=== PATIENT | female | born 1965 | race Caucasian/White ===

== ENCOUNTER 2016-11-12 12:17 | Emergency (ER) | payer MEDICARE, OTHER ==
--- NOTE | 2016-11-12 13:44 | ED ---
Extremity Problem HPI - General Chief complaint: Extremity Problem,Nontraumatic Stated complaint: Legs Swelling Time Seen by Provider: 11/12/16 13:30 Source: patient, RN notes reviewed Mode of arrival: wheelchair Limitations: no limitations - History of Present Illness Initial comments: This is a 42-year-old female with a history of DVTs about 10 years ago presents with complaints of about 4 days of increasing swelling to both lower extremities with pain she states it yet worse since last night. She denies any shortness breath fevers chills or sweats the pain is 10/10 severity burning in nature. She suspects it feels similar to her previous episode. She has no other complaints at this time. MD Complaint: extremity pain, extremity swelling - Related Data Home Medications Medication Instructions Recorded Confirmed Albuterol Sulfate [Ventolin HFA] 2 puff INHALATION RT-TID 03/19/14 11/12/16 Fluticasone Propionate [Flonase] 2 spray EA NOSTRIL DAILY 03/19/14 11/12/16 Ibuprofen [Motrin] 800 mg PO TID 03/19/14 11/12/16 Methocarbamol [Robaxin-750] 750 mg PO HS 03/19/14 11/12/16 Simvastatin [Zocor] 20 mg PO HS 03/19/14 11/12/16 Tiotropium 18 Mcg/Puff [Spiriva] 1 cap INHALATION RT-DAILY 03/19/14 11/12/16 Budesonide/Formoterol Fumarate 2 puff INHALATION RT-BID 11/12/16 11/12/16 [Symbicort 80-4.5 Mcg Inhaler] Lactulose [Cephulac] 20 gm PO BID 11/12/16 11/12/16 Loratadine [Claritin] 10 mg PO DAILY 11/12/16 11/12/16 Mometasone/Formoterol [Dulera 100 2 puff INHALATION RT-BID 11/12/16 11/12/16 Mcg/5 Mcg Inhaler] Montelukast [Singulair] 10 mg PO HS 11/12/16 11/12/16 Spironolactone [Aldactone] 25 mg PO DAILY 11/12/16 11/12/16 Allergies Allergy/AdvReac Type Severity Reaction Status Date / Time amoxicillin [Amoxicillin] AdvReac Unknown FLUSHED, Verified 11/12/16 13:20 RED & HOT Review of Systems ROS Statement: Those systems with pertinent positive or pertinent negative responses have been documented in the HPI. ROS Other: All systems not noted in ROS Statement are negative. Past Medical History Past Medical History: Asthma, COPD, Deep Vein Thrombosis (DVT), Osteoarthritis ( OA) Additional Past Medical History / Comment(s): FREQUENT BRONCHITIS, OCCASIONAL SWELLING IN LEGS, NEUOPATHY IN LEGS, SCIATICA History of Any Multi-Drug Resistant Organisms: None Reported Past Surgical History: Back Surgery, Orthopedic Surgery Additional Past Surgical History / Comment(s): PAIN CLINIC PROCEDURES, ARTHROSCOPY SALINA KNEES, CERVICAL FUSION WITH PLATES IN NECK Past Anesthesia/Blood Transfusion Reactions: No Reported Reaction Past Psychological History: PTSD Smoking Status: Heavy tobacco smoker Past Alcohol Use History: Occasional Past Drug Use History: None Reported General Exam - General Exam Comments Initial Comments: This is a well-developed well-nourished awake alert oriented history female Limitations: no limitations General appearance: alert, in no apparent distress Head exam: Present: atraumatic, normocephalic, normal inspection Eye exam: Present: normal appearance, PERRL, EOMI. Absent: scleral icterus, conjunctival injection, periorbital swelling ENT exam: Present: normal exam, mucous membranes moist Neck exam: Present: normal inspection. Absent: tenderness, meningismus, lymphadenopathy Respiratory exam: Present: normal lung sounds bilaterally. Absent: respiratory distress, wheezes, rales, rhonchi, stridor Cardiovascular Exam: Present: regular rate, normal rhythm, normal heart sounds. Absent: systolic murmur, diastolic murmur, rubs, gallop, clicks GI/Abdominal exam: Present: soft, normal bowel sounds. Absent: distended, tenderness, guarding, rebound, rigid Extremities exam: Present: full ROM, tenderness, normal capillary refill, pedal edema, calf tenderness. Absent: joint swelling Back exam: Present: normal inspection Neurological exam: Present: alert, oriented X3, CN II-XII intact Psychiatric exam: Present: normal affect, normal mood Skin exam: Present: warm, dry, intact, normal color. Absent: rash Course Vital Signs 11/12/16 12:23 Temperature 97.8 F Pulse Rate 104 H Respiratory 18 Rate Blood Pressure 137/71 O2 Sat by Pulse 96 Oximetry Medical Decision Making - Medical Decision Making I did discuss the findings with the patient she will be discharged she is already on Aldactone she states I did recommend elevating her legs is a couple times a day for 15-20 minutes she will try this first and a follow-up with her doctor. - Lab Data Result diagrams: 11/12/16 14:15 11/12/16 14:15 Lab Results 11/12/16 11/12/16 11/12/16 Range/Units 14:15 14:15 14:15 WBC 9.2 (3.8-10.6) k/uL RBC 4.57 (3.80-5.40) m/uL Hgb 14.6 (11.4-16.0) gm/dL Hct 42.9 (34.0-46.0) % MCV 93.9 (80.0-100.0) fL MCH 31.9 (25.0-35.0) pg MCHC 34.0 (31.0-37.0) g/dL RDW 13.3 (11.5-15.5) % Plt Count 294 (150-450) k/uL Neutrophils % 63 % Lymphocytes % 26 % Monocytes % 6 % Eosinophils % 3 % Basophils % 1 % Neutrophils # 5.8 (1.3-7.7) k/uL Lymphocytes # 2.4 (1.0-4.8) k/uL Monocytes # 0.5 (0-1.0) k/uL Eosinophils # 0.2 (0-0.7) k/uL Basophils # 0.1 (0-0.2) k/uL D-Dimer (<0.60) mg/L FEU Sodium (137-145) mmol/L Potassium (3.5-5.1) mmol/L Chloride (98-107) mmol/L Carbon Dioxide (22-30) mmol/L Anion Gap mmol/L BUN (7-17) mg/dL Creatinine (0.52-1.04) mg/dL Est GFR (MDRD) Af Amer (>60 ml/min/1.73 sqM) Est GFR (MDRD) Non-Af (>60 ml/min/1.73 sqM) Glucose (74-99) mg/dL Calcium (8.4-10.2) mg/dL Total Bilirubin (0.2-1.3) mg/dL AST (14-36) U/L ALT (9-52) U/L Alkaline Phosphatase (38-126) U/L Total Creatine Kinase 99 (30-135) U/L CK-MB (CK-2) 0.5 (0.0-2.4) ng/mL CK-MB (CK-2) Rel Index 0.5 NT-Pro-B Natriuret Pep 88 pg/mL Total Protein (6.3-8.2) g/dL Albumin (3.5-5.0) g/dL 11/12/16 11/12/16 Range/Units 14:15 14:15 WBC (3.8-10.6) k/uL RBC (3.80-5.40) m/uL Hgb (11.4-16.0) gm/dL Hct (34.0-46.0) % MCV (80.0-100.0) fL MCH (25.0-35.0) pg MCHC (31.0-37.0) g/dL RDW (11.5-15.5) % Plt Count (150-450) k/uL Neutrophils % % Lymphocytes % % Monocytes % % Eosinophils % % Basophils % % Neutrophils # (1.3-7.7) k/uL Lymphocytes # (1.0-4.8) k/uL Monocytes # (0-1.0) k/uL Eosinophils # (0-0.7) k/uL Basophils # (0-0.2) k/uL D-Dimer 0.48 (<0.60) mg/L FEU Sodium 137 (137-145) mmol/L Potassium 3.8 (3.5-5.1) mmol/L Chloride 101 (98-107) mmol/L Carbon Dioxide 25 (22-30) mmol/L Anion Gap 11 mmol/L BUN 9 (7-17) mg/dL Creatinine 0.89 (0.52-1.04) mg/dL Est GFR (MDRD) Af Amer >60 (>60 ml/min/1.73 sqM) Est GFR (MDRD) Non-Af >60 (>60 ml/min/1.73 sqM) Glucose 119 H (74-99) mg/dL Calcium 9.8 (8.4-10.2) mg/dL Total Bilirubin 0.8 (0.2-1.3) mg/dL AST 23 (14-36) U/L ALT 34 (9-52) U/L Alkaline Phosphatase 92 (38-126) U/L Total Creatine Kinase (30-135) U/L CK-MB (CK-2) (0.0-2.4) ng/mL CK-MB (CK-2) Rel Index NT-Pro-B Natriuret Pep pg/mL Total Protein 7.0 (6.3-8.2) g/dL Albumin 4.2 (3.5-5.0) g/dL - EKG Data -: EKG Interpreted by Tn EKG shows normal: sinus rhythm (EKG shows a normal sinus rhythm of 80 ND interval 128 QRS duration 80 daily since QTC of 400/461 some possible left atrial enlargement no acute ST-T wave changes some artifact present) - Radiology Data Radiology results: report reviewed (I did review the imaging studies and report no acute findings.), image reviewed Disposition Clinical Impression: Peripheral edema Disposition: HOME SELF-CARE Condition: Good Instructions: Leg Edema (ED) Additional Instructions: Elevate your legs for 15-20 minutes at least twice a day.
[2016-11-12 14:37] LABS: Basophils # (A) 0.1 k/uL (0-0.2); Basophils % (A) 1 %; CH 31.5; CHCM 33.6; Eosinophils # (A) 0.2 k/uL (0-0.7); Eosinophils % (A) 3 %; HCT 42.9 % (34.0-46.0); HDW 2.44; HGB 14.6 gm/dL (11.4-16.0); Luc # (Auto) 0.15; Luc % (Auto) 2; Lymphocytes # (A) 2.4 k/uL (1.0-4.8); Lymphocytes % (A) 26 %; MCH 31.9 pg (25.0-35.0); MCV 93.9 fL (80.0-100.0); Mean Platelet Volume 7.1; Monocytes # (A) 0.5 k/uL (0-1.0); Monocytes % (A) 6 %; Neutrophils # (A) 5.8 k/uL (1.3-7.7); Neutrophils % (A) 63 %; RBC 4.57 m/uL (3.80-5.40); RDW 13.3 % (11.5-15.5); WBC 9.2 k/uL (3.8-10.6); WBC (Perox) 9.04
[2016-11-12 14:44] LABS: ALT 34 U/L (9-52); AST 23 U/L (14-36); Alkaline Phosphatase 92 U/L (38-126); Anion Gap 11 mmol/L; Blood Urea Nitrogen 9 mg/dL (7-17); Calcium 9.8 mg/dL (8.4-10.2); Carbon Dioxide 25 mmol/L (22-30); Chloride 101 mmol/L (98-107); Glucose 119 mg/dL (74-99); Non-African American GFR(MDRD) >60 (>60 ml/min/1.73 sqM); Potassium 3.8 mmol/L (3.5-5.1); Sodium 137 mmol/L (137-145); Total Bilirubin 0.8 mg/dL (0.2-1.3)
[2016-11-12 15:01] LABS: Creatine Kinase MB 0.5 ng/mL (0.0-2.4)
--- NOTE | 2016-11-12 15:05 | US ---
EXAMINATION TYPE: US venous doppler duplex LE DATE OF EXAM: 11/12/2016 1:40 PM COMPARISON: NONE CLINICAL HISTORY: Pain. SIDE PERFORMED: Bilateral lower extremity TECHNIQUE: The lower extremity deep venous system is examined utilizing real time linear array sonog diandra with graded compression, doppler sonography and color-flow sonography. VESSELS IMAGED: External Iliac Vein (EIV) Common Femoral Vein Deep Femoral Vein Greater Saphenous Vein * Femoral Vein Popliteal Vein Small Saphenous Vein * Proximal Calf Veins (* superficial vessels) Patient of large body habitus. Right Leg: Negative for DVT Left Leg: Negative for DVT IMPRESSION: 1. No diagnostic evidence of DVT as visualized.
[2016-11-12 15:25] VITALS: BP 153/84; PULSE 72; RESP 16; TEMP 98.3
== END 2016-11-12 15:32 | disposition home or self-care (01) ==
LOC: EC 12:17
DX: R60.9 Edema, unspecified (principal); J44.9 Chronic obstructive pulmonary disease, unspecified; M19.90 Unspecified osteoarthritis, unspecified site; F17.200 Nicotine dependence, unspecified, uncomplicated; Z86.718 Personal history of other venous thrombosis and embolism; Z79.1 Long term (current) use of non-steroidal anti-inflammatories (NSAID); Z79.51 Long term (current) use of inhaled steroids; Z79.899 Other long term (current) drug therapy; Z88.0 Allergy status to penicillin
CPT/HCPCS: 36415; 80053; 82550; 82553; 83880; 85025; 85379; 86001; 93005; 93970; 99284

== ENCOUNTER → 2016-11-12 | Outpatient (CLI) | payer MEDICARE, OTHER ==
[2016-11-15 13:43] LABS: Beef IgG 9.7 mcg/mL (< 2.0); Chicken Meat IgG < 2.0 mcg/mL (< 2.0); Coffee IgG < 2.0 mcg/mL (< 2.0); Corn IgG 23.9 mcg/mL (< 2.0); Cow's Milk IgG 74.1 mcg/mL (< 2.0); Peanut IgG < 2.0 mcg/mL (< 2.0); Pork IgG 2.3 mcg/mL (< 2.0); Potato IgG < 2.0 mcg/mL (< 2.0); Soybean IgG < 2.0 mcg/mL (< 2.0); Tomato IgG < 2.0 mcg/mL (< 2.0); Wheat IgG 2.4 mcg/mL (< 2.0)
== END | disposition home or self-care (01) ==
LOC: LABWHC1 08:19
PROVIDERS: ATTEND Otolaryngology
DX: J30.89 Other allergic rhinitis (principal)
CPT/HCPCS: 36415; 86001

== ENCOUNTER → 2017-01-25 | Outpatient (CLI) | payer MEDICARE, OTHER ==
--- NOTE | 2017-01-25 15:36 | US ---
EXAMINATION TYPE: US bladder DATE OF EXAM: 01/25/2017 COMPARISON: NONE CLINICAL HISTORY: R32 Unspecified urinary incontinence. pt states newly diagnosed with food allergies , bloating and bowel issues EXAM MEASUREMENTS: Bilateral wall thickening identified or nodule seen. Post Void Residual Volume: 2.9 mL Bladder scanned, pre and post void imaging, normal appearing exam. Color Doppler performed to assess ureteral jets. Bilateral Jets seen: yes Normal Post Void Residual (less than 50ml): yes IMPRESSION: Normal study.
== END | disposition home or self-care (01) ==
LOC: RADUSWWP 14:28
PROVIDERS: ATTEND Family Medicine
DX: R32 Unspecified urinary incontinence (principal)
CPT/HCPCS: 76857

== ENCOUNTER → 2018-03-23 | Outpatient (CLI) | payer MEDICARE, OTHER ==
--- NOTE | 2018-03-31 11:38 | MM ---
Reason for exam: additional evaluation requested from prior study. Last mammogram was performed 2 years and 4 months ago. History: Taking hormonal contraceptives beginning at age 19. Physical Findings: Nurse did not find any significant physical abnormalities on exam. MG 3D Diag Mammo W/Cad SALINA Bilateral CC and MLO view(s) were taken. Prior study comparison: November 18, 2015, mammogram, performed at [facility]. The breast tissue is heterogeneously dense. This may lower the sensitivity of mammography. Stable benign calcifications. There is no discrete abnormality. No significant new findings when compared with previous films. These results were verbally communicated with the patient on 03/31/18. ASSESSMENT: Benign, BI-RAD 2 RECOMMENDATION: Routine screening mammogram of both breasts in 1 year.
== END | disposition home or self-care (01) ==
LOC: RADMAMWWP 14:19
PROVIDERS: ATTEND Family Medicine
DX: N60.11 Diffuse cystic mastopathy of right breast (principal); N60.12 Diffuse cystic mastopathy of left breast
CPT/HCPCS: 77066; G0279; 77062

== ENCOUNTER → 2018-04-20 | Outpatient (CLI) | payer MEDICARE, OTHER | LOC: LABWHC1 11:47 | PROVIDERS: ATTEND Psychiatry & Neurology Neurology | DX: M62.838 Other muscle spasm (principal) | CPT/HCPCS: 36415; 82607 ==

== ENCOUNTER 2018-05-13 08:00 | Day surgery (SDC) | payer MEDICARE, OTHER ==
[~2018-05-13 08:00] MED LIST: PREMYELOGRAM MEDICATION REVIEW 1 EACH MISC PO ONE
[2018-05-13 08:44] VITALS: TEMP 98.1
[2018-05-13] MEDS ORDERED: DIAZEPAM 5 MG TAB PO STA (08:46)
[2018-05-13 09:43] VITALS: PULSE 68
[2018-05-13] MEDS ORDERED: HYDROcodone/APAP 5-325MG 1 EACH TAB PO PRN (09:50)
--- NOTE | 2018-05-13 11:37 | FL ---
EXAMINATION TYPE: FL myelogram 2 or more regions DATE OF EXAM: 05/13/2018 COMPARISON: Outside lumbar spine MRI April 13, 2018 HISTORY: Cervicalgia and sacroiliitis, back pain. Informed consent was obtained and all the patient's questions were answered. The L4 level was locali zed under fluoroscopy. Standard sterile technique was utilized as well as appropriate local anesthes ia 1% Lidocaine. Spinal needle was introduced into the thecal sac under fluoroscopic guidance and 15 mL's of Isovue 200 was injected. The patient tolerated the procedure well and left the department i n stable condition. CT myelography is to follow. Images obtained to document successful spinal anila l injection. Note is made of fusion plate in the mid to lower cervical spine. Patient was kept in hospital for short stay after procedure and discharged home in stable condition. Vital signs were monitored before during and after procedure. A total of 2 minutes 7 seconds of fluoroscopic time was utilized. 4 spot images are saved to PACS. IMPRESSION: Successful myelography for subsequent CT cervical and lumbar spine.
--- NOTE | 2018-05-13 11:54 | CT ---
EXAMINATION TYPE: CT cervical spine w con DATE OF EXAM: 05/13/2018 COMPARISON: Outside MRI cervical spine images April 13, 2018 HISTORY: Cervicalgia per order. CT DLP: 1669 mGycm. Automated Exposure Control for Dose Reduction was Utilized. TECHNIQUE: CT scan of the cervical spine is obtained with intrathecal contrast, axial images are obt ained, sagittal and coronal reformatted images are also reviewed. Imaging is performed after the intr athecal injection of 15 cc of Isovue-200. FINDINGS: Cervical spine is visualized in its entirety from C1 through upper thoracic levels, redemon strates satisfactory alignment without evidence of acute fracture or dislocation. Successful contrast opacification of spinal canal is noted. Prevertebral soft tissue appears within normal limits. The C1-C2 articulation is within normal limits on the coronal images. There is redemonstration of anteri or fusion plate and artificial disc material C4-C6 levels. Vertebral body heights and disc space heig hts are felt satisfactory above and below surgical levels. Small posterior disc herniation mildly eff aces anterior thecal sac C6-C7 level on sagittal image 36. Review of axial images shows the C2-C3 and C3-C4 levels to appear within normal limits. Axial images at C4-C5 and C5-C6 levels show artifact from anterior fusion plate and disc material, sp inal canal is preserved, bilateral neural foramina are patent. Axial images at C6-C7 level shows small central disc protrusion mildly effacing anterior thecal sac n ear axial image 72, bilateral neural foramina are patent. Axial images at C7-T1 level are felt within normal limits. Mild emphysematous change in visualized lung apices is felt present. IMPRESSION: Postsurgical changes C4-C6 level with satisfactory alignment. Small disc herniation C6-C7 level otherwise fairly unremarkable study.
--- NOTE | 2018-05-13 12:21 | CT ---
EXAMINATION TYPE: CT lumbar spine w con DATE OF EXAM: 05/13/2018 COMPARISON: Outside MRI lumbar spine coronal and sagittal images April 13, 2018. HISTORY: Sacroiliitis, lumbago with sciatica unspecified side, and pain in the thoracic spine all per order. CT DLP: 1669 mGycm Automated exposure control for dose reduction was used. CONTRAST: CT scan of the lumbar is performed with intrathecal contrast, patient injected with 15 mL of Isovue M 200. Findings: There are 5 lumbar type vertebra identified. There is satisfactory alignment without eviden ce of acute fracture or dislocation. Vertebral body heights are maintained. There is mild disc space narrowing with mild anterior spurring L2-L3 level. There is mild to moderate anterior spurring L3-L4 level. Small posterior disc herniations are redemonstrated at L2-L3 through L4-L5 levels on sagittal images. Successful contrast opacification of spinal canal is noted. Conus medullaris is normal in pos ition and appearance attending mid L1 level. Review of axial images shows the T12-L1 and L1-L2 levels to appear within normal limits. Axial images at the L2-L3 level show mild broad disc bulge mildly effacing anterior thecal sac, bilat eral neural foramina are patent. Axial images at the L3-L4 level show mild broad disc bulge mildly effacing anterior thecal sac, bilat eral neural foramina are patent. No significant change from prior. Axial images at L4-L5 level show mild facet degenerative changes bilaterally. There is mild broad dis c bulge mildly effacing anterior thecal sac. Bilateral neural foramina are patent. Axial images at the L5-S1 level show mild right greater than left facet degenerative changes. Spinal canal is preserved. Bilateral neural foramina are patent. Normal-appearing appendix from cecum is incidentally seen. Mild wall thickening of the right and visu alized transverse colon is presumed product of poor distention. IMPRESSION: Multilevel degenerative changes in the mid to lower lumbar spine as detailed above, findi ngs correlate with outside MRI.
[2018-05-13 13:19] VITALS: RESP 20
[2018-05-13 14:02] VITALS: BP 119/70
== END 2018-05-13 13:30 | disposition home or self-care (01) ==
LOC: RADPROMAIN 08:00
PROVIDERS: ATTEND Specialist
DX: M51.16 Intervertebral disc disorders with radiculopathy, lumbar region (principal); M50.223 Other cervical disc displacement at C6-C7 level; Z98.1 Arthrodesis status; M46.1 Sacroiliitis, not elsewhere classified
CPT/HCPCS: 62305; 72126; 72132; Q9966

== ENCOUNTER → 2018-12-20 | Outpatient (CLI) | payer MEDICARE ==
[2018-12-20 10:53] LABS: Basophils % (A) 1 %; Eosinophils # (A) 0.1 k/uL (0-0.7); Eosinophils % (A) 2 %; HCT 50.1 % (34.0-46.0); HGB 16.4 gm/dL (11.4-16.0); Lymphocytes # (A) 2.3 k/uL (1.0-4.8); Lymphocytes % (A) 27 %; MCH 31.6 pg (25.0-35.0); MCHC 32.7 g/dL (31.0-37.0); MCV 96.8 fL (80.0-100.0); Mean Platelet Volume 7.6; Monocytes # (A) 0.6 k/uL (0-1.0); Monocytes % (A) 7 %; Neutrophils # (A) 5.1 k/uL (1.3-7.7); Neutrophils % (A) 62 %; Platelet Count 327 k/uL (150-450); RBC 5.18 m/uL (3.80-5.40); WBC 8.2 k/uL (3.8-10.6)
[2018-12-20 16:21] LABS: Albumin 4.6 g/dL (3.80-4.90); Albumin/Globulin Ratio 2.42 (1.60-3.17); Anion Gap 10.4 mmol/L (4.00-12.00); Calcium 9.6 mg/dL (8.7-10.3); Carbon Dioxide 22.6 mmol/L (21.6-31.8); Globulin 1.9 g/dL (1.6-3.3); LDL Cholesterol,Calculated 177.8 mg/dL (0.0-131.0); Potassium 4.4 mmol/L (3.5-5.5); Total Bilirubin 0.9 mg/dL (0.3-1.2); Total Protein 6.5 g/dL (6.2-8.2); VLDL Calculation 20.2 mg/dL (5.00-40.00)
[2018-12-20 20:48] LABS: Hemoglobin A1C 5.4 % (4.0-6.0)
== END | disposition home or self-care (01) ==
LOC: LABWHC1 10:02
PROVIDERS: ATTEND Otolaryngology
DX: J30.89 Other allergic rhinitis (principal); N93.0 Postcoital and contact bleeding; R53.83 Other fatigue; E78.00 Pure hypercholesterolemia, unspecified; Z13.220 Encounter for screening for lipoid disorders
CPT/HCPCS: 36415; 80053; 80061; 83036; 84443; 85025; 86001

== ENCOUNTER → 2019-09-13 | Outpatient (CLI) | payer MEDICARE ==
[2019-09-13 07:40] LABS: Basophils % (A) 0 %; Eosinophils # (A) 0.2 k/uL (0-0.7); Eosinophils % (A) 2 %; HCT 44.3 % (34.0-46.0); HGB 14.9 gm/dL (11.4-16.0); Lymphocytes # (A) 2.2 k/uL (1.0-4.8); Lymphocytes % (A) 20 %; MCH 33.1 pg (25.0-35.0); MCHC 33.7 g/dL (31.0-37.0); MCV 98.3 fL (80.0-100.0); Mean Platelet Volume 7.8; Monocytes # (A) 0.6 k/uL (0-1.0); Monocytes % (A) 5 %; Neutrophils # (A) 7.7 k/uL (1.3-7.7); Neutrophils % (A) 70 %; Platelet Count 336 k/uL (150-450); RBC 4.51 m/uL (3.80-5.40); RDW 12.2 % (11.5-15.5)
[2019-09-13 11:04] LABS: African American GFR (CKD) 85.2 (60.0-200.0); Albumin 4.4 g/dL (3.80-4.90); Albumin/Globulin Ratio 2.32 (1.60-3.17); Anion Gap 9.8 mmol/L (4.00-12.00); BUN/Creat Ratio 13.33 Ratio (12.00-20.00); Calcium 9.7 mg/dL (8.7-10.3); Carbon Dioxide 28.2 mmol/L (21.6-31.8); Globulin 1.9 g/dL (1.6-3.3); Non-African American GFR(CKD) 73.5 (60.0-200.0); Potassium 4.4 mmol/L (3.5-5.5); Total Bilirubin 0.9 mg/dL (0.2-1.2); Total Protein 6.3 g/dL (6.2-8.2)
[2019-09-13 13:33] LABS: Gliadin AB IgA, Deaminated NEGATIVE (NEGATIVE); Gliadin AB IgA, Unit 0.4 U/mL; Gliadin AB IgG, Deaminated NEGATIVE (NEGATIVE)
== END ==
LOC: LABWHC1 07:00
PROVIDERS: ATTEND Student in an Organized Health Care Education/Training Program
DX: R19.4 Change in bowel habit (principal); R11.2 Nausea with vomiting, unspecified; R10.9 Unspecified abdominal pain
CPT/HCPCS: 36415; 80053; 83516; 85025; 87045; 87046; 87328; 87329

== ENCOUNTER → 2019-09-29 | Outpatient (CLI) | payer MEDICARE ==
--- NOTE | 2019-09-29 14:29 | MM ---
Reason for exam: screening (asymptomatic). Last mammogram was performed 1 year and 6 months ago. History: Family history of breast cancer in maternal aunt and breast cancer in maternal cousin. Taking hormonal contraceptives beginning at age 19. Physical Findings: A clinical breast exam by your physician is recommended on an annual basis and results should be correlated with mammographic findings. MG 3D Screening Mammo W/Cad Bilateral CC and MLO view(s) were taken. Prior study comparison: March 23, 2018, bilateral MG 3d diag mammo w/cad SALINA. November 18, 2015, mammogram, performed at [facility]. The breast tissue is heterogeneously dense. This may lower the sensitivity of mammography. No suspicious abnormality. No significant changes when compared with prior studies. ASSESSMENT: Negative, BI-RAD 1 RECOMMENDATION: Routine screening mammogram of both breasts in 1 year.
== END | disposition home or self-care (01) ==
LOC: RADMAMWWP 06:53
PROVIDERS: ATTEND Family Medicine
DX: Z12.31 Encounter for screening mammogram for malignant neoplasm of breast (principal)
CPT/HCPCS: 77063; 77067

== ENCOUNTER → 2020-09-06 | Outpatient (CLI) | payer MEDICARE ==
--- NOTE | 2020-09-07 07:39 | US ---
EXAMINATION TYPE: US pelvis complete transvag DATE OF EXAM: 09/06/2020 COMPARISON: 01/25/2017 CLINICAL HISTORY: N95.1 Menopausal and female cli, R10.2 Pelvic pain. TECHNIQUE: Transvaginal (TV) and Transabdominal (TA) . Transabdominal sonographic images of the pel vis were acquired. Transvaginal sonographic images were medically necessary to better assess the fol lowing anatomy: uterus and ovaries Date of LMP: IUD, patient hasn't had menses in 10 years, has had IUD for 10 years. EXAM MEASUREMENTS: Uterus: 7.0 x 2.8 x 3.8 cm Endometrial Stripe: 0.4 cm Right Ovary: cystic structure seen in right adnexa Left Ovary: 3.0 x 2.3 x 2.3cm 1. Uterus: Anteverted, wnl, IUD appears in place 2. Endometrium: wnl 3. Right Ovary: cystic structure seen in right adnexa measuring 1.4 x 1.2 x 1.6cm 4. Left Ovary: cyst 2.3 x 1.8 x 2.1cm 5. Bilateral Adnexa: wnl 6. Posterior cul-de-sac: wnl IMPRESSION: Bilateral ovarian cysts are are nonspecific. Consider follow-up study in 6 weeks.
== END | disposition home or self-care (01) ==
LOC: RADUSWWP 16:19
PROVIDERS: ATTEND Family Medicine
DX: N83.201 Unspecified ovarian cyst, right side (principal); N83.202 Unspecified ovarian cyst, left side; R10.2 Pelvic and perineal pain; N95.1 Menopausal and female climacteric states
CPT/HCPCS: 76830; 76856

== ENCOUNTER → 2020-10-18 | Outpatient (CLI) | payer MEDICARE ==
--- NOTE | 2020-10-19 13:23 | US ---
EXAMINATION TYPE: US pelvic complete DATE OF EXAM: 10/18/2020 COMPARISON: To 521 ultrasound CLINICAL HISTORY: N83.29 ovarian cyst. Follow up ovarian cysts, 1, para 1, patient has IUD TECHNIQUE: . Transabdominal sonographic images of the pelvis were acquired. Date of LMP: 10 years ago EXAM MEASUREMENTS: Uterus: 7.2 x 3.0 x 3.8 cm Endometrial Stripe: 0.3 cm Right Ovary: 2.1 x 1.5 x 1.9 cm Left Ovary: 3.5 x 2.6 x 2.8 cm 1. Uterus: anteverted IUD appears to be within the endometrial canal 2. Endometrium: appears wnl 3. Right Ovary: 1.5cm cystic lesion, this appears stable 4. Left Ovary: 2.2cm cystic lesion, this appears stable 5. Bilateral Adnexa: wnl 6. Posterior cul-de-sac: wnl No suspicious fluid accumulations are identified. IMPRESSION: 1. Bilateral ovarian cyst remaining present and stable in appearance. Consider additional workup neop lasm cannot be excluded.
== END ==
LOC: RADUSWWP 14:50
PROVIDERS: ATTEND Family Medicine
DX: N83.201 Unspecified ovarian cyst, right side (principal); N83.202 Unspecified ovarian cyst, left side
CPT/HCPCS: 76856

== ENCOUNTER → 2021-02-24 | Outpatient (CLI) | payer MEDICARE ==
--- NOTE | 2021-02-27 15:09 | MM ---
Reason for exam: screening (asymptomatic). Last mammogram was performed 1 year and 5 months ago. History: Family history of breast cancer in maternal aunt and breast cancer in maternal cousin. Taking hormonal contraceptives beginning at age 19. Physical Findings: A clinical breast exam by your physician is recommended on an annual basis and results should be correlated with mammographic findings. MG 3D Screening Mammo W/Cad Bilateral CC and MLO view(s) were taken. Prior study comparison: September 29, 2019, bilateral MG 3d screening mammo w/cad. March 23, 2018, bilateral MG 3d diag mammo w/cad SALINA. The breast tissue is heterogeneously dense. This may lower the sensitivity of mammography. Stable benign calcifications. There is no discrete abnormality. No significant changes when compared with prior studies. ASSESSMENT: Benign, BI-RAD 2 RECOMMENDATION: Routine screening mammogram of both breasts in 1 year.
== END | disposition home or self-care (01) ==
LOC: RADMAMWWP 15:41
PROVIDERS: ATTEND Obstetrics & Gynecology
DX: Z12.31 Encounter for screening mammogram for malignant neoplasm of breast (principal); Z80.3 Family history of malignant neoplasm of breast
CPT/HCPCS: 77063; 77067

== ENCOUNTER → 2021-04-02 | Outpatient (CLI) | payer MEDICARE ==
--- NOTE | 2021-04-02 13:51 | US ---
EXAMINATION TYPE: US transvaginal DATE OF EXAM: 04/02/2021 COMPARISON: US CLINICAL HISTORY: N83.0 Ovarian cyst, bilateral. Followup ovarian cysts TECHNIQUE: Transvaginal (TV). Transvaginal sonographic images were medically necessary to better as sess the following anatomy: ovaries. Bladder was not prepped for TA US. IUD was removed 4 to 5 months ago. Date of LMP: over 10 years ago. EXAM MEASUREMENTS: Uterus: 6.8 x 3.5 x 2.9 cm Endometrial Stripe: 0.3 cm Right Ovary: 3.5 x 2.4 x 1.6 cm Left Ovary: 5.1 x 3.6 x 2.7 cm 1. Uterus: Anteverted; hypoechoic fluid area is noted in cervix = 1.2 x 0.5 x 0.2cm. IUD has been removed. 2. Endometrium: thickness appears wnl for post menopause status 3. Right Ovary: large follicular cyst = 2.2 x 1.7 x 1.4cm 4. Left Ovary: enlarged left ovary with follicular cyst noted = 4.5 x 3.2 x 2.5cm. (color flow is noted in bilateral ovary). 5. Bilateral Adnexa: wnl 6. Posterior cul-de-sac: wnl IMPRESSION: 1. Endocervical fluid. 2. Bilateral ovarian cysts have enlarged in the interval particularly on the left. Follow-up in 6 wee ks versus direct visualization is advised.
== END | disposition home or self-care (01) ==
LOC: RADUSWWP 12:20
PROVIDERS: ATTEND Obstetrics & Gynecology
DX: N83.201 Unspecified ovarian cyst, right side (principal); N83.202 Unspecified ovarian cyst, left side; Z78.0 Asymptomatic menopausal state
CPT/HCPCS: 76830

== ENCOUNTER → 2021-06-24 | Outpatient (CLI) | payer MEDICARE ==
--- NOTE | 2021-06-24 08:45 | CT ---
EXAMINATION TYPE: CT sinus wo con DATE OF EXAM: 06/24/2021 COMPARISON: NONE HISTORY: Chronic Sinusitis CT DLP: 596.50 mGycm. Automated Exposure Control for Dose Reduction was Utilized. TECHNIQUE: CT scan of the sinuses is performed without contrast, axial images are obtained, coronal r eformatted images are also reviewed. FINDINGS: The paranasal sinuses including the frontal, ethmoid, sphenoid, and maxillary sinuses bila terally are well-aerated without abnormal opacification or suspicious air-fluid levels. The ostiomea luis complex is patent bilaterally on coronal image 27. Visualized portion of mastoid air cells show no abnormal opacification. The globes are intact bilate rally. Visualized brain parenchyma unremarkable. IMPRESSION: The sinuses are clear and the ostiomeatal complex is patent bilaterally.
== END | disposition home or self-care (01) ==
LOC: RADCTMAIN 08:02
PROVIDERS: ATTEND Family Medicine
DX: J32.9 Chronic sinusitis, unspecified (principal)
CPT/HCPCS: 70486

== ENCOUNTER → 2021-08-12 | Outpatient (CLI) | payer MEDICARE ==
--- NOTE | 2021-08-12 12:38 | US ---
EXAMINATION TYPE: US pelvic complete DATE OF EXAM: 08/12/2021 COMPARISON: US 04/02/21, 10/18/20, 09/06/20 CLINICAL HISTORY: 56-year-old female N83 OVARIAN CYST. Bilateral ovarian cysts on previous ultrasound s. Follow up for size. Patient post menopausal with no c/o pain TECHNIQUE: Transabdominal sonographic images of the pelvis were acquired. Date of LMP: Post menopausal FINDINGS: EXAM MEASUREMENTS: Uterus: 7.3 x 3.9 x 3.1 cm Endometrial Stripe: 0.3 cm Right Ovary: 2.3 x 1.5 x 1.5 cm Left Ovary: 3.9 x 2.9 x 2.9 cm 1. Uterus: Anteverted and otherwise wnl 2. Endometrium: wnl 3. Right Ovary: with cyst = 1.7 x 1.1 x 1.3 cm Previously measured 2.2 x 1.7 x 1.4cm. 1.5 cm on 09/30. 1.6 cm on 09/06/2020. 4. Left Ovary: with cyst = 3.4 x 3.0 x 2.7 cm Previously measured 4.5 x 3.2 x 2.5cm. 2.2 cm on 10/18. 2.3 cm on 09/06/2020. 5. Bilateral Adnexa: wnl 6. Posterior cul-de-sac: wnl IMPRESSION: Nonspecific simple cyst in each ovary. Slightly smaller currently on the right at 1.7 cm (versus 2.2 cm previously) and slightly smaller on the left at 3.4 cm (versus 4.5 cm, previously). Recommended an annual surveillance exam.
== END | disposition home or self-care (01) ==
LOC: RADUSWWP 08:59
PROVIDERS: ATTEND Obstetrics & Gynecology
DX: N83.202 Unspecified ovarian cyst, left side (principal); N83.201 Unspecified ovarian cyst, right side
CPT/HCPCS: 76856

== ENCOUNTER → 2022-11-18 | Outpatient (CLI) | payer MEDICARE, OTHER | END | disposition home or self-care (01) | LOC: LABWHC1 11:46 | PROVIDERS: ATTEND Obstetrics & Gynecology | DX: Z11.3 Encounter for screening for infections with a predominantly sexual mode of transmission (principal) | CPT/HCPCS: 36415; 86780 ==

== ENCOUNTER → 2024-04-12 | Outpatient (CLI) | payer MEDICARE ==
--- NOTE | 2024-04-13 19:05 | MM ---
Reason for Exam: Screening (asymptomatic). Last mammogram was performed 1 year(s) and 6 month(s) ago. Patient History: Menarche at age 15. First Full-Term at age 32. Late child-bearing (after 32). Postmenopausal. Hormonal Contraceptives, starting at age 19. Maternal cousin had breast cancer. Maternal aunt had breast cancer. Risk Values: Mandy 5 year model risk: 1.7%. NCI Lifetime model risk: 10.9%. Prior Study Comparison: 09/29/2019 Bilateral Screening Mammogram, [facility]. 02/24/2021 Bilateral Screening Mammogram, [facility]. 10/05/2022 Bilateral MG 3D screening mammo w/cad, [facility]. Tissue Density: The breasts are heterogeneously dense, which may obscure small masses. Findings: Analyzed By CAD. Chronic subareolar nodularity on the left. Other areas of bilateral asymmetric density remain unchanged. There is no suspicious group of microcalcifications or new suspicious mass in either breast. Overall Assessment: Benign, BI-RAD 2 Management: Screening Mammogram of both breasts in 1 year. . Patient should continue monthly self-breast exams. A clinical breast exam by your physician is recommended on an annual basis. This exam should not preclude additional follow-up of suspicious palpable abnormalities. Note on Mandy scores and lifetime risk: 1. A Mandy score greater than 3% is considered moderate risk. If this is the case, consider specialist referral to assess eligibility for a risk reducing agent. 2. If overall lifetime risk for the development of breast cancer is 20% or higher, the patient may qualify for future screening with alternating mammogram and breast MRI. Electronically signed and approved by: Connor Dobbs M.D. Radiologist
== END | disposition home or self-care (01) ==
LOC: RADMAMWWP 10:11
PROVIDERS: ATTEND Family Medicine
DX: Z12.31 Encounter for screening mammogram for malignant neoplasm of breast
CPT/HCPCS: 77063; 77067